=== PATIENT | female | born 1970 | race Caucasian/White ===

== ENCOUNTER 2025-03-07 07:34 | Emergency (ER) | payer OTHER, SELFPAY ==
[2025-03-07 07:36] VITALS: BP 162/92
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
== END 2025-03-07 09:07 | disposition home or self-care (01) ==
LOC: EMR 07:34
PROVIDERS: EMERGENCY PHYSICIAN Emergency Medicine; FAMILY PHYSICIAN Student in an Organized Health Care Education/Training Program
DX: M79.662 Pain in left lower leg (principal); Z86.718 Personal history of other venous thrombosis and embolism
CPT/HCPCS: 99284; 93971